=== PATIENT | male | born 1955 | race Asian ===

== ENCOUNTER 2018-10-12 20:42 | Emergency (ER) | payer SELFPAY ==
[~2018-10-12] VITALS: Ht 172.7 cm; Wt 66.5 kg
--- NOTE | 2018-10-12 21:12 | NUR ---
URINE CUP AND INSTRUCTIONS FOR CLEAN CATCH GIVEN.
--- NOTE | 2018-10-12 21:37 | NUR ---
PT STATES EATING "A BAD PINEAPPLE" THIS AM AND INTERMITTENT VOMITING AND DIARRHEA SINCE 1200 THIS PM. DENIES ANY FEVERS. STATES ABLE TO TOLERATE PO INTAKE. DIFFUSE ABD PAIN NOTED. NO REBOUND TENDERNESS. NO BLOOD NOTED IN STOOL OR EMESIS BY PT.
[2018-10-12 21:43] LABS: MICROSCOPIC NOT IND
--- NOTE | 2018-10-12 22:05 | NUR ---
NO EMESIS NOTED IN ED.
[2018-10-12] MEDS ORDERED: ONDANSETRON 2MG/ML, 2ML ONE (22:24)
[2018-10-12] MEDS ORDERED: MAALOX/HYOSCYAMINE/LIDOCAINE 45 ML BTL ONE (22:24)
[2018-10-12] MEDS ORDERED: FAMOTIDINE 20 MG/2 ML ONE (22:25)
[2018-10-12] MEDS ORDERED: MAALOX/HYOSCYAMINE/LIDOCAINE 45 ML BTL PO ONE (22:30)
[2018-10-12] MEDS ORDERED: SODIUM CHLORIDE FLUSH 10ML SYR IVF ONE (22:30)
[2018-10-12] MEDS ORDERED: ONDANSETRON 2MG/ML, 2ML IVPush ONE (22:30)
[2018-10-12] MEDS ORDERED: SODIUM CHLORIDE 0.9% 1,000ML IVBOLUS ONE (22:30)
[2018-10-12] MEDS ORDERED: FAMOTIDINE 20 MG/2 ML IVP ONE (22:30)
[2018-10-12 22:40] VITALS: BP 128/70
[2018-10-12 22:58] LABS: MEAN CORPUSCULAR HGB CONC 33.2 g/dL (33.2-36.2); MEAN CORPUSCULAR VOLUME 96.5 fL (81-97); MEAN PLATELET VOLUME 6.8 fL (7.4-10.4); PLATELET COUNT 286 x10^3/uL (130-400); RED BLOOD COUNT 5.24 x10^6/uL (4.38-5.82); RED CELL DISTRIBUTION WIDTH 12.2 % (9.4-14.8)
[2018-10-12 23:09] LABS: ALBUMIN 4.5 g/dL (3.4-5.0); ANION GAP 6 mmol/L (5-15); CALCIUM 9.2 mg/dL (8.5-10.1); CHLORIDE 108 mmol/L (98-107); CREATININE 1.18 mg/dL (0.7-1.3)
[2018-10-12 23:13] LABS: MD YES
[2018-10-12 23:15] LABS: <PLATELET ESTIMATE> ADEQUATE; <PLT MORPHOLOGY> NORMAL PLT MORPH; <RBC MORPHOLOGY> NORMAL; BAND#(MANUAL) 0.67 x10^3/uL; BANDS%(MANUAL) 6 % (0-7); LYMPH#(MANUAL) 0.45 x10^3/uL (1-3.4); LYMPHS% (MANUAL) 4 % (22-44); MONOS#(MANUAL) 0.22 x10^3/uL (0.3-2.7); MONOS% (MANUAL) 2 % (2-9); SEG#(MANUAL) 9.86 x10^3/uL (1.8-6.8); SEGS% (MANUAL) 88 % (42-75)
--- NOTE | 2018-10-12 23:33 | NUR ---
ALL RESULTS BACK. PT UP FOR RECHECK. VSS. CALL LIGHT WITHIN REACH. AWAITING FURTHER ORDER.
== END 2018-10-13 00:18 | disposition home or self-care (01) ==
LOC: ED 23:59
DX: R11.2 Nausea with vomiting, unspecified (principal); R19.7 Diarrhea, unspecified
CPT/HCPCS: 36415; 74021; 80048; 81003; 82040; 85025; 96361; 96374; 96375; 99284; J2405; J3490; J7030